=== PATIENT | female | born 1995 | race Caucasian/White ===

== ENCOUNTER 2018-05-29 11:20 | Inpatient (IN) | payer OTHER ==
[~2018-05-29] VITALS: Ht 167.6 cm; Wt 86.6 kg
[2018-05-29] VITALS (26 sets, daily range): BP systolic 91–132; BP diastolic 57–79
--- NOTE | 2018-05-29 11:20 | NUR ---
SAWYER ROSS presented to unit via AMBULATORY from HOME, accompanied by S/O FOR INDUCTION OF LABOR. SAWYER ROSS weighed, gowned, voided, and to bed. EFHM and TOCO applied, VS taken. SAWYER ROSS oriented to bed controls, call light, TV, heat, and A/C controls.
[2018-05-29] MEDS ORDERED: D5 LR IV SOLUTION 1,000 ML IV ONE (11:40)
[2018-05-29] MEDS ORDERED: D5 LR IV SOLUTION 1,000 ML IV SCH (11:40)
[2018-05-29] MEDS ORDERED: AMPICILLIN FOR IV USE 2,000 MG in NS (IVPB) 50 ML IV SCH (11:40)
[2018-05-29] MEDS ORDERED: OXYTOCIN/NORMAL SALINE 500 ML IV SCH ×2 (11:40→22:24)
[2018-05-29] MEDS ORDERED: NS (IVPB) 0 ML ONE (11:41)
[2018-05-29] MEDS ORDERED: AMPICILLIN 2,000 MG/20 ML (IV USE) ONE (11:41)
[2018-05-29] MEDS ORDERED: MINERAL OIL CONCENTRATE 99.9% 15 ML UDC TOP PRN (11:45)
[2018-05-29 12:21] LABS: BASOPHILS % (AUTO) 0 % (0-10); EOSINOPHILS % (AUTO) 0 % (0-10); HEMATOCRIT 40 % (35-52); HEMOGLOBIN 13.5 G/DL (11.5-16.0); LYMPHOCYTES # (AUTO) 1.7 X 10^3 (1.0-4.0); LYMPHOCYTES % (AUTO) 19 % (12-44); MEAN CORPUSCULAR HEMOGLOBIN 30 PG (25-34); MEAN CORPUSCULAR HGB CONC 34 G/DL (32-36); MEAN CORPUSCULAR VOLUME 91 FL (80-99); MEAN PLATELET VOLUME 10.6 FL (7.4-10.4); MONOCYTES # (AUTO) 0.6 X 10^3 (0.0-1.0); MONOCYTES % (AUTO) 6 % (0-12); NEUTROPHILS # (AUTO) 6.7 X 10^3 (1.8-7.8); NEUTROPHILS % (AUTO) 74 % (42-75); PLATELET COUNT 163 10^3/uL (130-400); RED CELL DISTRIBUTION WIDTH 12.9 % (10.0-14.5); WHITE BLOOD COUNT 9.1 10^3/uL (4.3-11.0)
[2018-05-29 12:26] LABS: BILIRUBIN,URINE NEGATIVE (NEGATIVE); CLARITY,URINE CLEAR; COLOR,URINE YELLOW; GLUCOSE, URINE (UA) NEGATIVE (NEGATIVE); KETONES,URINE NEGATIVE (NEGATIVE); LEUKOCYTE ESTERASE ,URINE 1+ (NEGATIVE); NITRITE,URINE NEGATIVE (NEGATIVE); PH,URINE 6.5 (5-9); PROTEIN,URINE NEGATIVE (NEGATIVE); UROBILINOGEN,URINE NORMAL (NORMAL)
[2018-05-29] MEDS ORDERED: PREN-37 PO (12:28)
[2018-05-29 13:08] LABS: BACTERIA,URINE FEW /HPF
[2018-05-29] MEDS ORDERED: FLU QUADRIvalent (5+ YOA) 2018-2019 (AFLURIA) 0.5 ML IM ONE (13:30)
[2018-05-29] MEDS ORDERED: CATHETER FLUSH 10 ML SYR IV SCH (14:00)
--- NOTE | 2018-05-29 15:30 | NUR ---
REPORT TO Min WEBB RN.
[2018-05-29] MEDS ORDERED: AMPICILLIN FOR IV USE 1,000 MG in NS (IVPB) 50 ML IV SCH (15:45)
--- NOTE | 2018-05-29 18:29 | History & Physical-OB ---
OB - Chief Complaint & HPI Date/Time Date of Admission: Date of Admission: May 29, 2018 at 11:20 Date seen by a Provider: May 29, 2018 Time Seen by a Provider: 18:26 Chief Complaint/History OB-Reason for Admission/Chief: Induction of Labor Hx : 3 Hx Para: 2 Expected Date of Delivery: May 29, 2018 Gestational Age in Weeks: 40 Indication for induction: history of rapid labor Allergies and Home Medications Allergies Coded Allergies: No Known Drug Allergies (Unverified , 05/29/18) Home Medications Vit/Iron Fumarate/FA 1 Each Tablet, 1 EACH PO DAILY, (Reported) Patient Home Medication List Home Medication List Reviewed: Yes OB - History Hx of Present Care: Yes Ultrasounds: Normal mid trimester US Obstetrical Complications: None Medical Complications: None Delivery History Adverse Rxn to Tranfusion: No Patient Past Medical History previously healthy Social History/Family History HIV/AIDS: No Recent Infectious Disease Expo: No Sexually Transmitted Disease: No Alcohol Use: Denies Use Recreational Drug Use: No Immunizations Hepatitis A: No Hepatitis B: No OB - Admission Exam Physical Exam Vitals: Vital Signs 05/29/18 05/29/18 18:00 18:15 Temp 97.9 Pulse 61 Resp 18 B/P (MAP) 127/79 (95) O2 Delivery Room Air HEENT: PERRLA Heart: Rhythm Normal Lungs: Clear Abdomen: Gravid Cervical Dilatation: 5cm Effacement: 50% Station: -3 Membranes: Ruptured Amniotic Fluid: Clear Heart Rate: 130's Accelerations: Accelerations Present Decelerations: No Decelerations Short Term Variability: Present Case Finisher Variability: Average (6-25) Contractions on Admission: 6-10 Minutes Apart Labs Laboratory Tests Test 05/29/18 11:25 05/29/18 12:00 Range/Units Urine Color YELLOW Urine Clarity CLEAR Urine pH 6.5 5-9 Urine Specific [place] 1.015 L 1.016-1.022 Urine Protein NEGATIVE NEGATIVE Urine Glucose (UA) NEGATIVE NEGATIVE Urine Ketones NEGATIVE NEGATIVE Urine Nitrite NEGATIVE NEGATIVE Urine Bilirubin NEGATIVE NEGATIVE Urine Urobilinogen NORMAL NORMAL MG/DL Urine Leukocyte Esterase 1+ H NEGATIVE Urine RBC (Auto) NEGATIVE NEGATIVE Urine RBC NONE /HPF Urine WBC 5-10 H /HPF Urine Squamous Epithelial Cells 10-25 H /HPF Urine Crystals NONE /LPF Urine Bacteria FEW H /HPF Urine Casts NONE /LPF Urine Mucus NEGATIVE /LPF Urine Culture Indicated YES White Blood Count 9.1 4.3-11.0 10^3/uL Red Blood Count 4.44 4.35-5.85 10^6/uL Hemoglobin 13.5 11.5-16.0 G/DL Hematocrit 40 35-52 % Mean Corpuscular Volume 91 80-99 FL Mean Corpuscular Hemoglobin 30 25-34 PG Mean Corpuscular Hemoglobin Concent 34 32-36 G/DL Red Cell Distribution Width 12.9 10.0-14.5 % Platelet Count 163 130-400 10^3/uL Mean Platelet Volume 10.6 H 7.4-10.4 FL Neutrophils (%) (Auto) 74 42-75 % Lymphocytes (%) (Auto) 19 12-44 % Monocytes (%) (Auto) 6 0-12 % Eosinophils (%) (Auto) 0 0-10 % Basophils (%) (Auto) 0 0-10 % Neutrophils # (Auto) 6.7 1.8-7.8 X 10^3 Lymphocytes # (Auto) 1.7 1.0-4.0 X 10^3 Monocytes # (Auto) 0.6 0.0-1.0 X 10^3 Eosinophils # (Auto) 0.0 0.0-0.3 10^3/uL Basophils # (Auto) 0.0 0.0-0.1 10^3/uL OB - Assessment/Plan/Diagnosis Assessment Assessment: induction of labor Admission Dx here for induction of 40 wga, GBS positive. Admission Status: Inpatient Order (span 2 midnights) Reason for Inpatient Admission: Induction of labor Plan Plan: Induction Induction Method: per Pitocin Protocol WADE RASCON MD May 29, 2018 18:29
[2018-05-29] MEDS ORDERED: LIDOCAINE/EPI 2% 1:200,00 (XYLOCAINE) 10 ML VIAL ONE (19:39)
--- NOTE | 2018-05-29 20:03 | NUR ---
2002:Pt. cleaned up and taken out of stirrups. Fundus is firm and -2 under umbilicus. Bleeding is minimal at this time. 2009: Infant latched to breast and sucking. 2017: Fundus massaged. Firm and -2. Small clot expressed at this time. Minimal bleeding noted. 2034: Fundus massaged. Fundus boggy, but firmed with massage. -1 under umbilicus. Moderate bleeding noted that slowed with fundal massage. 2054: Fundus massaged. Firm and -2. Moderate bleeding noted. 2129: Chux changed. Firm and -2. Minimal bleeding noted. 2199: Fundus massaged. Firm and -1. Moderate bleeding noted. Small clot expressed. Pt. up to bathroom with no problems. Voided and cleaned up. Pad and underwear put on at this time. 2204: Pt. transferred to post room via wheelchair.
--- NOTE | 2018-05-29 20:07 | OB Labor & Delivery Record ---
Vag Delivery Note Vag Delivery Note Date of Delivery: 05/29/18 Preoperative Diagnosis: Courtney Estes is a (22 /Para 3 / 2,Gestational Age (wks)40with [induciton of labor] Postoperative Diagnosis: Same Surgeon: WADE RASCON District Medical Examiner: [none] Anesthesia: [none] Delivery Type: [] Findings: [] Viable [male] , apgars [8/9] Lacerations:none Intact placenta with 3 vessel cord. No nuchal cord, body cord or shoulder dystocia Estimated Blood Loss: [200] ml Complications: None Condition: Stable Description of Procedure: The patient is a [G3 Now P3]who presented [for induction]. She was admitted and informed consent was obtained. Her labor course was remarkable for [adequately treated for GBS] She progressed to complete dilatation and began to push. She was then set up for delivery. The 's head was delivered atraumatically in the [OA] position. The shoulders and remainder of the ' s body were then delivered without difficulty. Upon delivery, the head was held below the level of the perineum and the mouth and nares were bulb suctioned. The cord was doubly clamped and cut after 60 seconds and infant placed on maternal abdomen. An intact placenta with 3-vessel cord delivered via [place] and there was found to be minimal bleeding.~ Vigorous fundal massage was performed and the fundus was found to be firm. IV oxytocin was given. Examination of the vagina and perineum revealed no laceration. Following the repair, sponge, instrument and needle counts were correct. Mom and baby were both in stable condition in the labor suite. Vitals - Labs Vital Signs - I&O Vital Signs Date Time Temp Pulse Resp B/P (MAP) Pulse Ox O2 Delivery O2 Flow Rate FiO2 05/29/18 19:00 73 18 129/69 (89) Room Air 05/29/18 18:45 70 18 125/79 (94) Room Air 05/29/18 18:30 119 18 127/69 (88) Room Air 05/29/18 18:15 61 18 127/79 (95) Room Air 05/29/18 18:00 97.9 61 18 127/79 (95) Room Air 05/29/18 17:45 63 18 118/65 (82) Room Air 05/29/18 17:30 65 18 121/68 (85) Room Air 05/29/18 17:15 60 18 132/74 (93) Room Air 05/29/18 17:00 62 18 122/76 (91) Room Air 05/29/18 16:45 61 18 116/68 (84) Room Air 05/29/18 16:30 61 18 121/70 (87) Room Air 05/29/18 16:15 61 18 117/71 (86) Room Air 05/29/18 16:10 60 18 121/76 (91) Room Air 05/29/18 16:00 18 Room Air 05/29/18 15:45 74 18 119/69 (86) Room Air 05/29/18 15:30 62 18 118/70 (86) Room Air 05/29/18 15:15 97.5 62 18 115/57 (76) Room Air 05/29/18 12:23 73 18 96/65 (75) Room Air 05/29/18 12:05 97.5 Labs Laboratory Tests 05/29/18 11:25: Urine Color YELLOW, Urine Clarity CLEAR, Urine pH 6.5, Urine Specific [place] 1.015L, Urine Protein NEGATIVE, Urine Glucose (UA) NEGATIVE, Urine Ketones NEGATIVE, Urine Nitrite NEGATIVE, Urine Bilirubin NEGATIVE, Urine Urobilinogen NORMAL, Urine Leukocyte Esterase 1+H, Urine RBC (Auto) NEGATIVE, Urine RBC NONE , Urine WBC 5-10H, Urine Squamous Epithelial Cells 10-25H, Urine Crystals NONE, Urine Bacteria FEWH, Urine Casts NONE, Urine Mucus NEGATIVE, Urine Culture Indicated YES 05/29/18 12:00: White Blood Count 9.1, Red Blood Count 4.44, Hemoglobin 13.5, Hematocrit 40, Mean Corpuscular Volume 91, Mean Corpuscular Hemoglobin 30, Mean Corpuscular Hemoglobin Concent 34, Red Cell Distribution Width 12.9, Platelet Count 163, Mean Platelet Volume 10.6H, Neutrophils (%) (Auto) 74, Lymphocytes (%) (Auto) 19 , Monocytes (%) (Auto) 6, Eosinophils (%) (Auto) 0, Basophils (%) (Auto) 0, Neutrophils # (Auto) 6.7, Lymphocytes # (Auto) 1.7, Monocytes # (Auto) 0.6, Eosinophils # (Auto) 0.0, Basophils # (Auto) 0.0 WADE RASCON MD May 29, 2018 20:07
[2018-05-29] MEDS ORDERED: IBUPROFEN 600 MG (MOTRIN) TAB PO ONE (22:27)
[2018-05-29] MEDS ORDERED: MEASLES,MUMPS,RUBELLA 1 EA INJ SQ ONE (22:30)
[2018-05-29] MEDS ORDERED: BENZOCAINE/MENTHOL (DERMOPLAST) 56 ML CAN TP PRN (22:30)
[2018-05-29] MEDS ORDERED: WITCH HAZEL(TUCKS) 40 EA JAR TOP PRN (22:30)
[2018-05-29] MEDS: IBUPROFEN 600 MG (MOTRIN) TAB PO SCH (22:32)
[2018-05-30 02:15] VITALS: BP 112/55
[2018-05-30] MEDS ORDERED: IBUPROFEN 600 MG (MOTRIN) TAB PO ONE (04:38)
[2018-05-30] MEDS: IBUPROFEN 600 MG (MOTRIN) TAB PO SCH ×4 (04:44→22:19)
[2018-05-30 05:18] LABS: BASOPHILS % (AUTO) 0 % (0-10); EOSINOPHILS % (AUTO) 0 % (0-10); HEMATOCRIT 34 % (35-52); HEMOGLOBIN 11.7 G/DL (11.5-16.0); LYMPHOCYTES % (AUTO) 16 % (12-44); MEAN CORPUSCULAR HEMOGLOBIN 32 PG (25-34); MEAN CORPUSCULAR HGB CONC 35 G/DL (32-36); MEAN CORPUSCULAR VOLUME 92 FL (80-99); MONOCYTES % (AUTO) 8 % (0-12); NEUTROPHILS # (AUTO) 9.3 X 10^3 (1.8-7.8); NEUTROPHILS % (AUTO) 76 % (42-75); PLATELET COUNT 152 10^3/uL (130-400); RED CELL DISTRIBUTION WIDTH 12.9 % (10.0-14.5); WHITE BLOOD COUNT 12.2 10^3/uL (4.3-11.0)
[2018-05-30 06:38] VITALS: BP 100/54
[2018-05-30] MEDS: DOCUSATE SODIUM 100 MG (COLACE) CAP PO SCH ×2 (07:51→22:19)
[2018-05-30] MEDS: PRENATAL VITAMIN 1 EA TAB PO SCH (07:51)
[2018-05-30] MEDS ORDERED: HYDROcodone/APAP 5 MG/325 MG (LORTAB) TAB PO PRN (08:30)
--- NOTE | 2018-05-30 10:35 | Progress Note (SOAP) ---
Subjective Subjective/Events-last exam Doing well this AM. No concerns. Bleeding well controlled. Breast feeding well. Review of Systems Date Seen by Provider: May 30, 2018 Time Seen by Provider: 09:15 Pulmonary: No Dyspnea Cardiovascular: No: Chest Pain, Palpitations Gastrointestinal: No: Abdominal Pain Genitourinary: No Dysuria Objective Exam Last Set of Vital Signs Vital Signs Date Time Temp Pulse Resp B/P (MAP) Pulse Ox O2 Delivery O2 Flow Rate FiO2 05/30/18 06:38 98.0 58 16 100/54 (69) 96 Room Air Capillary Refill : I&O Intake and Output 05/30/18 00:00 Intake Total 1630 ml Balance 1630 ml Intake IV Total 1630 ml Daily Weight Change No General: Alert, Oriented X3, Cooperative, No Acute Distress HEENT: Mucous Memb Moist/[place] Lungs: Clear to Auscultation, Normal Air Movement Heart: Regular Rate, No Murmurs Abdomen: Normal Bowel Sounds, Soft, Other (Fundus firm and below umbilicus) Psych/Mental Status: Mental Status NL, Mood NL Results/Procedures Lab Laboratory Tests 05/29/18 11:25: Urine Color YELLOW, Urine Clarity CLEAR, Urine pH 6.5, Urine Specific [place] 1.015L, Urine Protein NEGATIVE, Urine Glucose (UA) NEGATIVE, Urine Ketones NEGATIVE, Urine Nitrite NEGATIVE, Urine Bilirubin NEGATIVE, Urine Urobilinogen NORMAL, Urine Leukocyte Esterase 1+H, Urine RBC (Auto) NEGATIVE, Urine RBC NONE , Urine WBC 5-10H, Urine Squamous Epithelial Cells 10-25H, Urine Crystals NONE, Urine Bacteria FEWH, Urine Casts NONE, Urine Mucus NEGATIVE, Urine Culture Indicated YES 05/29/18 12:00: White Blood Count 9.1, Red Blood Count 4.44, Hemoglobin 13.5, Hematocrit 40, Mean Corpuscular Volume 91, Mean Corpuscular Hemoglobin 30, Mean Corpuscular Hemoglobin Concent 34, Red Cell Distribution Width 12.9, Platelet Count 163, Mean Platelet Volume 10.6H, Neutrophils (%) (Auto) 74, Lymphocytes (%) (Auto) 19 , Monocytes (%) (Auto) 6, Eosinophils (%) (Auto) 0, Basophils (%) (Auto) 0, Neutrophils # (Auto) 6.7, Lymphocytes # (Auto) 1.7, Monocytes # (Auto) 0.6, Eosinophils # (Auto) 0.0, Basophils # (Auto) 0.0 05/30/18 05:06: White Blood Count 12.2H, Red Blood Count 3.66L, Hemoglobin 11.7, Hematocrit 34L , Mean Corpuscular Volume 92, Mean Corpuscular Hemoglobin 32, Mean Corpuscular Hemoglobin Concent 35, Red Cell Distribution Width 12.9, Platelet Count 152, Mean Platelet Volume 10.0, Neutrophils (%) (Auto) 76H, Lymphocytes (%) (Auto) 16 , Monocytes (%) (Auto) 8, Eosinophils (%) (Auto) 0, Basophils (%) (Auto) 0, Neutrophils # (Auto) 9.3H, Lymphocytes # (Auto) 2.0, Monocytes # (Auto) 1.0, Eosinophils # (Auto) 0.0, Basophils # (Auto) 0.0 Assessment/Plan Assessment/Plan Admission Status: Inpatient Order (span 2 midnights) Reason for Inpatient Admission: Labor (1) Normal vaginal delivery Status: Acute Assessment & Plan: PPD #1, Doing well, Continue breast feeding, Continue PNV, Bleeding Controlled (2) GBS carrier Clinical Quality Measures DVT/VTE Risk/Contraindication: Risk Factor Score Per Nursin RFS Level Per Nursing on Admit: 1=Low/No VTE PPX MARTINEZ SOLIZ MD May 30, 2018 10:35
[2018-05-30 13:00] VITALS: BP 119/61
[2018-05-30] MEDS: CATHETER FLUSH 10 ML SYR IV SCH ×2 (13:52→17:44)
[2018-05-30 16:27] VITALS: BP 109/65
[2018-05-30 22:19] VITALS: BP 98/50
[2018-05-31 04:58] VITALS: BP 103/67
[2018-05-31] MEDS: IBUPROFEN 600 MG (MOTRIN) TAB PO SCH ×2 (04:58→10:40)
[2018-05-31 07:35] VITALS: BP 104/55
[2018-05-31] MEDS: PRENATAL VITAMIN 1 EA TAB PO SCH (07:39)
[2018-05-31] MEDS: DOCUSATE SODIUM 100 MG (COLACE) CAP PO SCH (07:39)
--- NOTE | 2018-05-31 10:12 | Discharge Summary ---
Diagnosis/Chief Complaint Date of Admission May 29, 2018 at 11:20 Date of Discharge 05/31/18 Admission Diagnosis Admission Diagnosis Term Labor Discharge Diagnosis Term Vaginal delivery GBS + Problems/Diagnosis: (1) Normal vaginal delivery Assessment & Plan: PPD #2, Doing well, Continue breast feeding, Continue PNV, Bleeding Controlled, Plan for home today with Chris Rascon in 6 weeks Status: Acute (2) GBS carrier Discharge Summary-Simple/Stand Procedures term Discharge Physical Examination Allergies: Coded Allergies: No Known Drug Allergies (Unverified , 05/29/18) Vitals & I&Os Vital Sign - Last 12Hours Date Time Temp Pulse Resp B/P (MAP) Pulse Ox O2 Delivery O2 Flow Rate FiO2 05/31/18 07:35 97.7 56 18 104/55 (71) 98 Room Air General Appearance: Alert, Oriented X3 Respiratory: Clear to Auscultation, Normal Air Movement Cardiovascular: Regular Rate, No Murmurs Abdominal: Normal Bowel Sounds, Soft, Other (Fundus firm at umbilicus) Extremities: No Edema, No Tenderness/Swelling Psych/Mental Status: Mental Status NL, Mood NL Hospital Course See final discharge diagnosis. Discussion & Recommendations 22 yo G3 now P3 delivery term male via @ 40 wga, GBS+ Adequately treated Discharge Condition at discharge stable Instructions to patient/family Please see electronic discharge instructions given to patient. Discharge Medications Reviewed and agree with Discharge Medication list on patient's Discharge Instruction sheet Clinical Quality Measures DVT/VTE Risk/Contraindication: Risk Factor Score Per Nursin RFS Level Per Nursing on Admit: 1=Low/No VTE PPX Copy Copies To 1: WADE RASCON MD, HOLLY R MD May 31, 2018 10:12
[2018-05-31] MEDS ORDERED: IBUP-844 PO (10:14)
--- NOTE | 2018-05-31 10:20 | Discharge Instructions ---
Discharge Inst-[facility] Depart Medications New Medications: Ibuprofen (Ibu) 600 Mg Tablet 600 MG PO Q6H, #60 TAB Continued Medications: Vit/Iron Fumarate/FA ( Tablet) 1 Each Tablet 1 EACH PO DAILY, TAB Follow Up/Instructions Goal/Follow Up: [address] rascon Activity Activity: Activity as Tolerated Driving Instructions: You May Drive NO SMOKING: NO SMOKING Nothing Inside Vagina: No Douching, No [place], No Tampons Diet Discharge Diet: No Restrictions Symptoms to Report to : Bleeding Excessive, Fever Over 101 Degrees F, Vaginal Discharge Foul, Dizziness/Fainting, Nausea/Vomiting For Any Problems or Questions: Contact Your Physician Copies To 1: WADE RASCON MD, HOLLY R MD May 31, 2018 10:20
--- NOTE | 2018-05-31 11:15 | NUR ---
[facility] RX CALLED INTO [facility]. SPOKE WITH YUNI, PHARMACIST.
[2018-05-31 11:42] VITALS: BP 104/55
--- NOTE | 2018-05-31 11:42 | NUR ---
Verbal and written home instructions given. Verbalized understanding. Ambulated to exit - accompanied by Wilma, spouse and infant in carrier.
== END 2018-05-31 11:42 | disposition home or self-care (01) | DRG 807 ==
LOC: LDRP 11:20
PROVIDERS: ADMIT Family Medicine; ATTEND Family Medicine
PROC: 10E0XZZ Delivery of Products of Conception, External Approach (ICD-10-PCS; principal; 2018-05-29)
PROC: 3E033VJ Introduction of Other Hormone into Peripheral Vein, Percutaneous Approach (ICD-10-PCS; 2018-05-29)
DX: O99.824 Streptococcus B carrier state complicating childbirth (principal); Z3A.40 40 weeks gestation of pregnancy; Z37.0 Single live birth
CPT/HCPCS: 36415; 81000; 83033; 85025; 86850; 86900; 86901; 87088

== ENCOUNTER → 2019-11-26 | Outpatient (CLI) | payer OTHER ==
[~2019-11-26] MED LIST: IBUP-844 PO; PREN-37 PO
[2019-11-26 15:27] LABS: HEMATOCRIT 41 % (35-52); HEMOGLOBIN 13.7 G/DL (11.5-16.0); MEAN CORPUSCULAR HEMOGLOBIN 30 PG (25-34); MEAN CORPUSCULAR VOLUME 90 FL (80-99); WHITE BLOOD COUNT 5.7 10^3/uL (4.3-11.0)
[2019-11-26 15:28] LABS: BASOPHILS % (AUTO) 1 % (0-10); EOSINOPHILS # (AUTO) 0.1 10^3/uL (0.0-0.3); EOSINOPHILS % (AUTO) 1 % (0-10); LYMPHOCYTES # (AUTO) 2.3 X 10^3 (1.0-4.0); LYMPHOCYTES % (AUTO) 40 % (12-44); MEAN CORPUSCULAR HGB CONC 34 G/DL (32-36); MONOCYTES # (AUTO) 0.5 X 10^3 (0.0-1.0); MONOCYTES % (AUTO) 9 % (0-12); NEUTROPHILS # (AUTO) 2.8 X 10^3 (1.8-7.8); NEUTROPHILS % (AUTO) 49 % (42-75); PLATELET COUNT 213 10^3/uL (130-400); RED CELL DISTRIBUTION WIDTH 12.6 % (10.0-14.5)
[2019-11-26 15:50] LABS: ALANINE AMINOTRANSFERASE 14 U/L (0-55); ALKALINE PHOSPHATASE 49 U/L (40-136); BILIRUBIN,TOTAL 0.9 MG/DL (0.1-1.0); BUN/CREATININE RATIO 13; CALCIUM 9.2 MG/DL (8.5-10.1); CARBON DIOXIDE 28 MMOL/L (21-32); CHLORIDE 102 MMOL/L (98-107); CREATININE SERUM 0.93 MG/DL (0.60-1.30); GFR ESTIMATED > 60; GLUCOSE 93 MG/DL (70-105); POTASSIUM 3.9 MMOL/L (3.6-5.0); SODIUM 139 MMOL/L (135-145)
[2019-11-26 15:51] LABS: ALBUMIN 4.5 GM/DL (3.2-4.5)
[2019-11-27 15:49] LABS: FREE T4 (FREE THYROXINE) 0.78 NG/DL (0.70-1.48)
== END ==
LOC: LAB FS 14:36
PROVIDERS: ATTEND Family Medicine
DX: Z00.00 Encounter for general adult medical examination without abnormal findings (principal); R53.82 Chronic fatigue, unspecified
CPT/HCPCS: 36415; 80053; 82607; 84439; 84443; 85025